=== PATIENT | male | born 1970 | race Two or more races ===

== ENCOUNTER 2017-08-25 04:15 | Emergency (ER) | payer MEDICAID ==
[~2017-08-25] VITALS: Ht 177.8 cm; Wt 104.3 kg
[2017-08-25] MEDS ORDERED: HYDROmorphone HCL 2 MG/ML VL IM ONE (07:15)
[2017-08-25] MEDS ORDERED: METHOCARBAMOL 500 MG TAB PO ONE (07:15)
[2017-08-25] MEDS ORDERED: ONDANSETRON HCL 4 MG/2 ML VIAL IM ONE (07:15)
[2017-08-25 08:45] VITALS: BP 132/76
== END 2017-08-25 08:51 | disposition home or self-care (01) ==
LOC: EDBD 04:15 → ER 04:20
DX: M51.26 Other intervertebral disc displacement, lumbar region (principal)
CPT/HCPCS: 72131; 96372; 99284; J1170; J2405